=== PATIENT | male | born 1960 | race Caucasian/White ===

== ENCOUNTER 2017-02-03 16:18 | Inpatient (IN) | payer BC, OTHER ==
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
[2017-02-03] MEDS ORDERED: IOPAMIDOL (ISOVUE-300) 100 ML BTL ONE (17:07)
[2017-02-03] MEDS ORDERED: ONDANSETRON 4 MG/2 ML VIAL IVP PRN (18:18)
[2017-02-03] MEDS: HYDROCODONE/APAP 5/325 TAB PO PRN (20:32)
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
[2017-02-04] MEDS: HYDROCODONE/APAP 5/325 TAB PO PRN ×4 (04:17→22:52)
[2017-02-04] MEDS ORDERED: ceFAZolin 2 GM/SWFI 2 GM/20 ML SYR IVP ONE (07:35)
[2017-02-04] MEDS ORDERED: D5W 1/2 NS W/ 20 KCl/L 1,000 ML IV SCH (08:30)
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
--- NOTE | 2017-02-04 09:50 | ASMTCMCOM ---
CM Note CM Note Notes: Chart reviewed. Spoke with RN. Patient to go to surgery today for ORIF of tibial plateau fracture. Pending therapy eval likely to dc home over weekend. Needs to be determined. Date Signed: 02/04/2017 09:49 AM Electronically Signed By:Cristina Wang RN
[2017-02-04] MEDS ORDERED: LR 1,000 ML IV ONE (11:53)
[2017-02-04] MEDS ORDERED: ceFAZolin 2 GM/SWFI 20 ML SYR IVP ONE (12:07)
[2017-02-04] MEDS ORDERED: BUPIVACAINE 0.25% 30 ML SDV ONE (12:35)
--- NOTE | 2017-02-04 12:43 | PDHPUP ---
History & Physical Update H&P update statement: This history and physical update is based on an assessment of the patient which was completed after admission or registration (within 24 hours), but prior to the surgery/procedure.
--- NOTE | 2017-02-04 13:01 | PDANEPAE ---
ANE History of Present Illness ORIF of L tibial platteau ANE Past Medical History - Pulmonary History Hx Oxygen in Use at Home: No Hx Sleep Apnea: Yes Sleep Apnea Screening Result - Last Documented: Positive Pulmonary History Comment: Pt. snores. - Endocrine History Hx Diabetes: No Hypothyroid: No Obesity: moderate - Renal History Hx Renal Disorders: No - Neurological & Psychiatric Hx Hx Neurological and Psychiatric Disorders: No - Cancer History Hx Cancer: No - GI History GERD: no (In distant past) - Surgical History Prior Surgeries: L thumb surgery, testicular surgery, vas D. surgery, L eye surgery ANE Review of Systems Review of Systems: - Exercise capacity METS (RN): 4 METS ANE Patient History - Allergies Allergies/Adverse Reactions: No Known Allergies Allergy (Unverified 02/03/17 16:41) - Home Medications Home Medications: Aspirin EC [Aspirin EC 81 mg (*)] 81 mg PO DAILY 02/03/17 [Last Taken 02/03/17] Multivitamins [Multivitamin (*)] 1 each PO DAILY 02/03/17 [Last Taken 02/03/17] - NPO status NPO Since - Liquids (Date): 02/04/17 NPO Since - Liquids (Time): 00:01 NPO Since - Solids (Date): 02/04/17 NPO Since - Solids (Time): 00:01 - Anes Hx Anes Hx: no prior problems - Smoking Hx Smoking Status: Former smoker (1 ppd x 30 years, quit in 2009) Marijuana use: No - Alcohol Use Alcohol Use: Occasionally (one drink x 2-3/week) - Family Anes Hx Family Anes Hx: none ANE Labs/Vital Signs - Vital Signs Blood Pressure: 120/93 Heart Rate: 84 Respiratory Rate: 16 O2 Sat (%): 98 Height: 175.26 cm Weight: 113.398 kg ANE Physical Exam - Airway Neck exam: FROM (chronic intermettent neck pain) Mallampati Score: Class 1 ([place]) - Pulmonary Pulmonary: clear to auscultation - Cardiovascular Cardiovascular: regular rate and rhythym - ASA Status ASA Status: II ANE Anesthesia Plan Anesthesia Plan: general endotracheal anesthesia
[2017-02-04] MEDS ORDERED: MIDAZOLAM 2 MG/2 ML VIAL IVP ONE (13:09)
[2017-02-04] MEDS ORDERED: fentaNYL 250 MCG/5 ML INJ ONE (13:21)
[2017-02-04] MEDS ORDERED: ROCURONIUM 50 MG/5 ML VIAL ONE ×2 (13:23→14:14)
[2017-02-04] MEDS ORDERED: DEXAMETHASONE 4 MG/ML VIAL ONE (13:23)
[2017-02-04] MEDS ORDERED: PROPOFOL 200 MG/20 ML VIAL ONE ×4 (13:23→14:25)
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
[2017-02-04] MEDS ORDERED: ONDANSETRON 4 MG/2 ML VIAL ONE ×2 (14:54)
[2017-02-04] MEDS ORDERED: GLYCOPYRROLATE 0.2 MG/1 ML VIAL ONE ×2 (14:55)
[2017-02-04] MEDS ORDERED: NEOSTIGMINE METHYLSULFATE 3 MG/3 ML SYR ONE (14:55)
--- NOTE | 2017-02-04 15:25 | POSTOPPROG ---
Post Op Note Date of Operation: 02/04/17 Surgeon: Rock William Operations Officer Afloat: Linnette Anesthesiologist: Himanshu Anesthesia: GET(General Endotracheal) Pre-op Diagnosis: l tibial plateau fx Post-op Diagnosis: same Indication: above Procedure: orif L tibial plateau fx Inf/Abcess present in the surg proc area at time of surgery?: No EBL: 50-100
--- NOTE | 2017-02-04 15:27 | ASMTCMCOM ---
CM Note CM Note Notes: Pt Flor ([phone]) called to report pt will require SNF placement as she requires care herself and she will certainly not be able to assist w pt care. Flor contacted pt insurance and [facility] can accept this insurance. Referral sent in [employer]. will have to authorize SNF. CM to follow. Date Signed: 02/04/2017 03:26 PM Electronically Signed By:LIN Stratton
[2017-02-04] MEDS ORDERED: NALOXONE HCL 0.4 MG/ML INJ IVP PRN (15:31)
[2017-02-04] MEDS ORDERED: fentaNYL 100 MCG/2 ML INJ ONE (15:45)
[2017-02-04] MEDS: fentaNYL 100 MCG/2 ML INJ IVP PRN ×2 (15:48→15:56)
[2017-02-04] MEDS ORDERED: HYDROmorphONE/DILAUDID 1 MG/ML INJ ONE (16:00)
[2017-02-04] MEDS: HYDROmorphONE/DILAUDID 1 MG/ML INJ IVP PRN ×2 (16:04→16:19)
[2017-02-04] MEDS ORDERED: HYDROCODONE/APAP 10/325 TAB ONE (16:16)
[2017-02-04] MEDS ORDERED: HYDROCODONE/APAP 5/325 TAB ONE (16:19)
[2017-02-04] MEDS ORDERED: FLU VACC QS 2017-18 (3YR+)/PF 0.5 ML SYR (FLUARIX QUAD) IM ONE (18:20)
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
--- NOTE | 2017-02-04 23:08 | POSTANESTH ---
Post Anesthetic Evaluation Cardiovascular Status: Normal, Stable Respiratory Status: Similar to Pre-op Cond. Level of Consciousness/Mental Status: Can Participate in Eval Pain Control: Adequate, Prn Tx Ordered Nausea/Vomiting Control: Adequate, Prn Tx Ordered Complications Possibly Related to Anesthesia: None Noted
[2017-02-05] MEDS: HYDROCODONE/APAP 5/325 TAB PO PRN (05:11)
--- NOTE | 2017-02-05 08:36 | TRAUMAPN ---
Assessment/Plan: no overnight complaints s/p left tib plateau ORIF. pain decently controlled. unable to walk or move easily. no cp or sob. no abd c.o. no bm for mult days. avss. comfortable. abd soft, nontender. doing well overall. bowel regimen. dvt prophy. rehab planning. Objective: Vital Signs Temp Pulse Resp BP Pulse Ox 37.1 C 102 H 18 119/82 H 94 02/05/17 07:45 02/05/17 07:45 02/05/17 07:45 02/05/17 07:45 02/05/17 07:45 02/04/17 02/05/17 02/06/17 05:59 05:59 05:59 Intake Total 1750 Output Total 1515 Balance 235
[2017-02-05] MEDS ORDERED: oxyCODONE IR 15 MG TAB PO PRN (08:37)
[2017-02-05] MEDS ORDERED: BISACODYL 10 MG SUPP PR PRN (08:39)
[2017-02-05] MEDS ORDERED: LACTULOSE 20 GM/30 ML UDCUP PO PRN (08:39)
[2017-02-05] MEDS ORDERED: MAGNESIUM HYDROXIDE 30 ML UDCUP PO PRN (08:39)
[2017-02-05] MEDS: SENNOSIDES/DOCUSATE SODIUM TAB PO SCH ×2 (10:15→20:33)
[2017-02-05] MEDS: oxyCODONE IR 5 MG TAB PO PRN ×4 (10:16→23:03)
--- NOTE | 2017-02-05 13:08 | SOAPPROG ---
SOAP Progress Note Assessment/Plan: Assessment: s/p ORIF L tibial plateau fx 02/04 Plan: NWB LLE ROM as tolerated may be out of brace when in bed DVT prophalaxsis He has my card to make f/u appt in 10 days 02/05/17 13:06 Subjective: pain in left knee Objective: Vital Signs Temp Pulse Resp BP Pulse Ox 37.1 C 102 H 18 119/82 H 94 02/05/17 07:45 02/05/17 07:45 02/05/17 07:45 02/05/17 07:45 02/05/17 07:45 02/04/17 02/05/17 02/06/17 05:59 05:59 05:59 Intake Total 1750 Output Total 1515 Balance 235 dressing cdi can move toes ICD10 Worksheet Patient Problems: Problems Problem Status Onset Fracture of left tibial plateau Acute Multiple rib fractures Acute
[2017-02-05] MEDS: POLYETHYLENE GLYCOL 3350 17 GM PKT PO PRN (14:43)
[2017-02-05] MEDS: ACETAMINOPHEN 325 MG TAB PO PRN (20:33)
[2017-02-06] MEDS: oxyCODONE IR 5 MG TAB PO PRN ×6 (03:05→23:57)
[2017-02-06] MEDS: ACETAMINOPHEN 325 MG TAB PO PRN ×3 (03:05→14:16)
[2017-02-06] MEDS: SENNOSIDES/DOCUSATE SODIUM TAB PO SCH ×2 (08:19→20:00)
[2017-02-06] MEDS: ENOXAPARIN 40 MG/0.4 ML SYR SC SCH (08:19)
--- NOTE | 2017-02-06 08:29 | SOAPPROG ---
SOAP Progress Note Assessment/Plan: Assessment: s/p ORIF L tibial plateau fx 02/04 Plan: NWB LLE ROM as tolerated may shower may be out of brace when in bed DVT prophalaxsis- Agree with lovenox and will continue this at rehab He has my card to make f/u appt in 9 days 02/05/17 13:06 02/06/17 08:28 Subjective: pain imporving Objective: Vital Signs Temp Pulse Resp BP Pulse Ox 36.6 C 94 18 126/82 H 95 02/06/17 07:20 02/06/17 07:20 02/06/17 07:20 02/06/17 07:20 02/06/17 07:20 02/05/17 02/06/17 02/07/17 05:59 05:59 05:59 Intake Total 1750 Output Total 1515 1100 300 Balance 235 -1100 -300 incision cdi ICD10 Worksheet Patient Problems: Problems Problem Status Onset Fracture of left tibial plateau Acute Multiple rib fractures Acute
[2017-02-06] MEDS: POLYETHYLENE GLYCOL 3350 17 GM PKT PO PRN (11:15)
--- NOTE | 2017-02-06 12:50 | TRAUMAPN ---
Assessment/Plan: s/p ORIF lef Tibial fx pain related to rib fxs. tachycardia I recommended repeating the CXR/Add Oxycontin for better pain control continue PT/OT until rehab bed available near patient's home ([facility]) Subjective: reports poor pain control even with Oxy IR 15mg Q4H most of the pain is in the left chest with walker ambulation Objective: Vital Signs Temp Pulse Resp BP Pulse Ox 36.6 C 94 18 126/82 H 95 02/06/17 07:20 02/06/17 07:20 02/06/17 07:20 02/06/17 07:20 02/06/17 07:20 02/05/17 02/06/17 02/07/17 05:59 05:59 05:59 Intake Total 1750 Output Total 1515 1100 300 Balance 235 -1100 -300 Physical Exam - Physical Exam General Appearance: alert, mild distress Neck: non-tender Respiratory: chest non-tender, lungs clear, decreased breath sounds Cardiac/Chest: regular rate, rhythm, tachycardia Abdomen: non-tender, soft Male Genitalia: deferred Rectal: deferred Skin: warm/dry Extremities: other (LLE knee immobilizer) Neuro/Psych: alert, normal mood/affect, oriented x 3
[2017-02-07] MEDS: oxyCODONE IR 5 MG TAB PO PRN ×4 (04:00→16:23)
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
[2017-02-07] MEDS: ENOXAPARIN 40 MG/0.4 ML SYR SC SCH (09:06)
[2017-02-07] MEDS: SENNOSIDES/DOCUSATE SODIUM TAB PO SCH (09:06)
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
--- NOTE | 2017-02-07 15:15 | ASMTCMCOM ---
CM Note CM Note Notes: Pt medically stable for d/c and the [facility] has received insurance authorization. Juan with [facility] set up a wc van for 1630. Pt Flor updated. MANNY Tirado to call report at [phone]. Orders sent in Allscripts. No PASRR required for this SNF. Date Signed: 02/07/2017 03:14 PM Electronically Signed By:LIN Stratton
[2017-02-07 15:32] VITALS: BP 106/87; PULSE 98; RESP 15; TEMP 98.4; O2SAT 95
--- NOTE | 2017-02-08 09:43 | ASDISCHSUM ---
Discharge Information Plan Status:SNF Medically Cleared to Leave: Discharge Date:02/07/2017 04:34 PM D/C Disposition:Snf Facility ADT D/C Disposition:Home, Routine, Self-Care Projected Discharge Date:02/07/2017 11:00 AM Transportation at D/C:Wheelchair Van Discharge Delay Reason: Follow-Up Date:02/07/2017 11:00 AM Discharge Slot: Final Diagnosis: Placement Information Referral Type:*[facility]p/SNF Referral ID:[id number] Provider Name:[facility] [address] [facility] Address 2: City:[place] Selection Factors: State:[place] Patient Contact Information Contact Name:CASSIDY Relationship: Address:[address] [place] [address] Work Phone: [facility]:[place] Alternate Phone: State/Zip Code:[place] [address] Email: Financial Information Financial Class:HMO and PPO Plans Primary Plan Desc: OUT OF STATE PPO Primary Plan Number:[id number] Secondary Plan Desc: Secondary Plan Number: Assessment Information LACE LACE Length of stay for Answers: Less than 1 day current admission Acuity / Level of Care Answers: Was the patient admitted to hospital via the emergency department? Yes: Emergency dept visits in Answers: 1 last 6 months Score: 4 Date Signed: 02/04/2017 09:47 AM Electronically Signed By:Cristina Wang RN [facility] Progress Note CM Note CM Note Notes: Chart reviewed. Spoke with RN. Patient to go to surgery today for ORIF of tibial plateau fracture. Pending therapy eval likely to dc home over weekend. Needs to be determined. Date Signed: 02/04/2017 09:49 AM Electronically Signed By:Cristina Wang RN [facility] Progress Note CM Note CM Note Notes: Pt Flor ([phone]) called to report pt will require SNF placement as she requires care herself and she will certainly not be able to assist w pt care. Flor contacted pt insurance and [facility] reports they can accept this insurance. Referral sent in Allscripts. will have to authorize SNF. CM to follow. Date Signed: 02/04/2017 03:26 PM Electronically Signed By:LIN Stratton [facility] CM Progress Note CM Note CM Note Notes: Pt medically stable for d/c and the [facility] has received insurance authorization. Juan with [facility] set up a wc van for 1630. Pt Flor updated. MANNY Tirado to call report at [phone]. Orders sent in Allscripts. No PASRR required for this SNF. Date Signed: 02/07/2017 03:14 PM Electronically Signed By:LIN Stratton Intervention Information
== END 2017-02-07 16:34 | disposition home or self-care (01) | DRG 493 ==
LOC: F3N 20:23 → OBSVTOIN 02-04 10:32
PROVIDERS: ADMIT Surgery; ATTEND Surgery
PROC: 0QSH04Z Reposition Left Tibia with Internal Fixation Device, Open Approach (ICD-10-PCS; principal; 2017-02-04 13:00)
DX: S82.142A Displaced bicondylar fracture of left tibia, initial encounter for closed fracture (principal); S22.42XA Multiple fractures of ribs, left side, initial encounter for closed fracture; V28.4XXA Motorcycle driver injured in noncollision transport accident in traffic accident, initial encounter; Y92.414 Local residential or business street as the place of occurrence of the external cause; M54.2 Cervicalgia; M85.48 Solitary bone cyst, other site; Z23 Encounter for immunization
CPT/HCPCS: 82947-QW; 92523-GN; 97116-GP; 97162-GP; 97166-GO; 97530-GP; 97535-GO; C1713; C1762; C1769; G0008; J0171; J0690; J1100; J1170; J1650; J2250; J2405; J2704; J2710; J3010; L1832; Q9967